=== PATIENT | female | born 1980 | race Caucasian/White ===

== ENCOUNTER 2017-09-23 09:52 | Emergency (ER) | payer SELFPAY ==
[~2017-09-23] VITALS: Ht 160 cm; Wt 99.0 kg
[2017-09-23 09:53] VITALS: BP 141/95; PULSE 75; RESP 16; TEMP 97.7; O2SAT 100
[2017-09-23] MEDS ORDERED: ZOLO100T PO (10:45)
--- NOTE | 2017-09-23 10:46 | PD ---
HPI Chief Complaint: Medication Refill Request Time Seen by Provider: 10:22 Travel History International Travel<30 days: No Contact w/Intl Traveler<30days: No Traveled to known affect area: No History of Present Illness HPI This is a 37-year-old female here with major depressive disorder who recently relocated to the [facility] [place]. She is requesting a refill of her Zoloft. She reports she has been on Zoloft 100 mg daily for major depressive disorder for the last 4 years. She attempted to go to [facility] to establish with a new psychiatrist but was told she could not be scheduled an appointment until October 05. She reports her last dose of Zoloft was 2 days ago. She denies homicidal or suicidal ideation. She has no medical complaint. [facility] Past Medical History Narrative Medical Major depressive disorder Social History Tobacco Use: No Allergies-Medications (Allergen,Severity, Reaction): Coded Allergies: penicillin G (Verified Allergy, Severe, 09/23/17) cephalexin (Verified Allergy, Unknown, 09/23/17) Review of Systems Except as stated in HPI: all other systems reviewed are Neg Physical Exam Narrative GENERAL: Alert and well-appearing 37-year-old female SKIN: Warm and dry. HEAD: Normocephalic. EYES: No injection or drainage. NECK: Supple CARDIOVASCULAR: Regular rate and rhythm RESPIRATORY: Breath sounds equal bilaterally. No accessory muscle use. PSYCHIATRIC: Normal affect. No delusional thought processes. No hallucinations. Data Data Last Documented VS Vital Signs Date Time Temp Pulse Resp B/P (MAP) Pulse Ox O2 Delivery O2 Flow Rate FiO2 09/23/17 09:53 97.7 75 16 141/95 (110) 100 Room Air MDM Medical Decision Making Medical Screen Exam Complete: Yes Emergency Medical Condition: Yes Differential Diagnosis History of major depressive disorder, medication refill, other Narrative Course This is a 37-year-old female here with history of major depressive disorder who relocated to the [facility] and is looking for any psychiatrist. She is requesting a refill of her Zoloft. She reports she has been stable on Zoloft 100 mg daily for the last 4 years. She has a prescription bottle to verify dosing. No homicidal or suicidal ideation. Patient has a scheduled appointment on October 05 to establish with a new psychiatrist. Patient will be given a one-month supply of her Zoloft and instructed to follow-up with psychiatry. She agrees to this plan Diagnosis Primary Impression: Medication refill Referrals: [facility] (Out patient) Additional Instructions: Keep your scheduled appointment with Sander summers on October 05. Take the Zoloft as directed. Return to the emergency department if you develop new or worsening symptoms Scripts Sertraline (Zoloft) 100 Mg Tab 100 MG PO DAILY, #30 TAB 0 Refills Prov: Obdulia Mina 09/23/17 Disposition: 01 DISCHARGE HOME Condition: Stable Obdulia Mina Sep 23, 2017 10:46
== END 2017-09-23 10:55 | disposition home or self-care (01) ==
LOC: NEPK 09:52
DX: F32.9 Major depressive disorder, single episode, unspecified (principal); Z76.0 Encounter for issue of repeat prescription
CPT/HCPCS: 99283

== ENCOUNTER 2017-12-07 17:55 | Emergency (ER) | payer MEDICAID ==
[~2017-12-07 17:55] MED LIST: ZOLO100T PO
[2017-12-07 18:17] VITALS: BP 173/117; PULSE 91; RESP 18; TEMP 99.1; O2SAT 98
[2017-12-07 19:01] LABS: AUTOMATED NEUTROPHIL # 4.8 TH/MM3 (1.8-7.7); BASOPHIL # 0.1 TH/MM3 (0-0.2); BASOPHIL % 1.2 % (0.0-2.0); EOSINOPHIL # 0.2 TH/MM3 (0-0.4); EOSINOPHIL % 2.2 % (0.0-4.0); HEMATOCRIT 42.5 % (35.0-46.0); HEMOGLOBIN 14.4 GM/DL (11.6-15.3); LYMPH % 31.4 % (9.0-44.0); LYMPHOCYTE # 2.6 TH/MM3 (1.0-4.8); MEAN CELL VOLUME 84.7 FL (80.0-100.0); MEAN CORPUSCULAR HEMOGLOBIN 28.7 PG (27.0-34.0); MEAN CORPUSCULAR HGB CONC 33.8 % (32.0-36.0); MEAN PLATELET VOLUME 8.5 FL (7.0-11.0); MONO % 7.1 % (0.0-8.0); MONOCYTE # 0.6 TH/MM3 (0-0.9); NEUT % 58.1 % (16.0-70.0); PLATELET COUNT 262 TH/MM3 (150-450); RED BLOOD COUNT 5.02 MIL/MM3 (4.00-5.30); RED CELL DISTRIBUTION WIDTH 15.5 % (11.6-17.2); WHITE BLOOD COUNT 8.2 TH/MM3 (4.0-11.0)
[2017-12-07 19:13] LABS: BILIRUBIN, URINE NEG (NEG); BLOOD, URINE NEG (NEG); GLUCOSE,URINE NEG (NEG); KETONE, URINE NEG (NEG); NITRITE,URINE NEG (NEG); PH, URINE 5.5 (5.0-8.5); SQUAMOUS EPITHELIAL CELL URINE <1 /hpf (0-5); URINE COLOR YELLOW (YELLW/STRAW); URINE LEUKOCYTE ESTERASE NEG (NEG)
[2017-12-07 19:27] LABS: ALBUMIN 3.9 GM/DL (3.4-5.0); AST (GOT) 18 U/L (15-37); BICARBONATE 28.1 MEQ/L (21.0-32.0); BLOOD UREA NITROGEN 8 MG/DL (7-18); CALCIUM 10.1 MG/DL (8.5-10.1); CHLORIDE 103 MEQ/L (98-107); GLOMERULAR FILTRATION RATE 81 ML/MIN (>89); GLUCOSE,RANDOM 101 MG/DL (74-106); SODIUM (NA) 138 MEQ/L (136-145)
[2017-12-07 19:28] LABS: ALT (GPT) 40 U/L (10-53)
[2017-12-07 19:30] LABS: ALKALINE PHOSPHATASE 65 U/L (45-117); TOTAL BILIRUBIN ADULT 0.3 MG/DL (0.2-1.0); TOTAL PROTEIN 8.5 GM/DL (6.4-8.2)
[2017-12-07 19:40] VITALS: O2SAT 99
[2017-12-07] MEDS ORDERED: MORPHINE SULFATE 4 MG/ML INJ IV PUSH ONE (19:45)
[2017-12-07] MEDS ORDERED: SODIUM CHLOR 0.9% 1000 ML INJ 1,000 ML IV ONE (19:45)
[2017-12-07] MEDS ORDERED: ONDANSETRON HCL 4 MG/2 ML VIAL IV PUSH ONE (19:45)
[2017-12-07] MEDS ORDERED: IOHEXOL 350 MG/ML 10 ML VIAL (for RAD DIAG) IVCONTRAST ONE (20:19)
--- NOTE | 2017-12-07 20:46 | RADRPT ---
EXAM DATE/TIME: 12/07/2017 20:15 [facility] COMPARISON: No previous studies available for comparison. INDICATIONS : Right lateral abdomen pain. IV CONTRAST: 97 cc Omnipaque 350 (iohexol) IV ORAL CONTRAST: No oral contrast ingested. RADIATION DOSE: 10.23 CTDIvol (mGy) MEDICAL HISTORY : None. SURGICAL HISTORY : None. ENCOUNTER: Initial ACUITY: 1 day PAIN SCALE: 5/10 LOCATION: Right lateral abdomen TECHNIQUE: Volumetric scanning of the abdomen and pelvis was performed. Using automated exposure control and ad justment of the mA and/or kV according to patient size, radiation dose was kept as low as reasonably achievable to obtain optimal diagnostic quality images. DICOM format image data is available electro nically for review and comparison. FINDINGS: LOWER LUNGS: The visualized lower lungs are clear. LIVER: There is diffuse decreased attenuation to the liver. There is a focal 1.3 cm hypodense mass seen at t he posterior right lateral aspect of posterior segment right lobe of the liver. The gallbladder is un remarkable. SPLEEN: Normal size without lesion. PANCREAS: Within normal limits. KIDNEYS: Normal in size and shape. There is no mass, stone or hydronephrosis. ADRENAL GLANDS: Within normal limits. VASCULAR: There is no aortic aneurysm. BOWEL/MESENTERY: What appears to be appendix is seen in the right lower quadrant extending laterally from the cecum. I t does appear thickened measuring 1.3 cm. This only measures 3 cm in length. The stomach, small bowel , and colon demonstrate no acute abnormality. There is no free intraperitoneal air or fluid. ABDOMINAL WALL: Within normal limits. RETROPERITONEUM: There is no lymphadenopathy. BLADDER: No wall thickening or mass. REPRODUCTIVE: There is a 5.1 cm cyst at the left adnexa. INGUINAL: There is no lymphadenopathy or hernia. MUSCULOSKELETAL: Within normal limits for patient age. CONCLUSION: 1. What appears to be appendix appears thickened. Appendicitis could be considered in the correct cli nical situation. 2. 5.1 cm cyst at the left ovary. 3. Hepatic steatosis. Eric Burden MD on December 07, 2017 at 20:37 Board Certified Radiologist. This report was verified electronically.
--- NOTE | 2017-12-07 20:57 | PD ---
HPI . Abdominal pain Chief Complaint: Abdominal Pain Time Seen by Provider: 19:28 Travel History International Travel<30 days: No Contact w/Intl Traveler<30days: No Traveled to known affect area: No History of Present Illness HPI Patient presents with a chief complaint of diffuse upper abdominal pain. Onset was 1 week. The pain waxes and wanes and has been worse today than usual. It is currently rated 8/10. She states that it feels like a heavy sensation which has been located in her upper abdomen the entire week. Pain is not exacerbated by walking. Pain is exacerbated by eating solid foods and laying flat. Associated symptoms include nausea and loose stools. She reports a decreased appetite. She states that it is hard to breathe and that it hurts worse when she breathes. She reports a strong family history of cholelithiasis at a young age. PFSH Past Medical History Anxiety: Yes Depression: Yes GERD: Yes Hypertension: Yes ?: Not Dilation and Curettage (D&C): Yes Past Surgical History Section: Yes (x3 ) Social History Alcohol Use: No Tobacco Use: No Substance Use: No Allergies-Medications (Allergen,Severity, Reaction): Coded Allergies: penicillin G (Verified Allergy, Severe, 12/07/17) cephalexin (Verified Allergy, Unknown, 12/07/17) Reported Meds & Prescriptions Reported Meds & Active Scripts Active Bentyl (Dicyclomine HCl) 10 Mg Cap 20 Mg PO QID Zoloft (Sertraline HCl) 100 Mg Tab 100 Mg PO DAILY Review of Systems Except as stated in HPI: all other systems reviewed are Neg General / Constitutional: No: Fever, Chills Gastrointestinal: Positive: Nausea, Diarrhea, Abdominal Pain, No: Vomiting Genitourinary: No: Urgency, Frequency, Dysuria, Dyspareunia, Discharge, Vaginal Bleeding Physical Exam Narrative GENERAL: Awake and alert. She does not appear to be in acute distress although she does look a little bit uncomfortable. SKIN: warm/dry. HEAD: Normocephalic. Atraumatic. EYES: Pupils equal and round. No scleral icterus. No injection or drainage. ENT: No nasal bleeding or discharge. Mucous membranes pink and moist. NECK: Trachea midline. Full range of motion without pain.. CARDIOVASCULAR: Regular rate and rhythm. Heart sounds are normal. RESPIRATORY: No accessory muscle use. Clear to auscultation. Breath sounds equal bilaterally. GASTROINTESTINAL: Abdomen soft. Mainly upper abdominal tenderness. She does have some lower abdominal tenderness about the upper abdominal tenderness is worse than the lower abdominal tenderness. Bowel sounds present. Nondistended. MUSCULOSKELETAL: No obvious deformities. NEUROLOGICAL: Awake and alert. No obvious cranial nerve deficits. Motor grossly within normal limits. Normal speech. PSYCHIATRIC: Appropriate mood and affect; insight and judgment normal. Data Data Last Documented VS Vital Signs Date Time Temp Pulse Resp B/P (MAP) Pulse Ox O2 Delivery O2 Flow Rate FiO2 12/07/17 19:40 99 Room Air 12/07/17 18:17 99.1 91 18 173/117 (135) Orders Orders Complete Blood Count With Diff (12/07/17 18:24) Comprehensive Metabolic Panel (12/07/17 18:24) Urinalysis - C+S If Indicated (12/07/17 18:24) Ed Urine Pregnancytest Poc (12/07/17 18:24) Iv Access Insert/Monitor (12/07/17 18:24) Oxygen Administration (12/07/17 18:24) Oximetry (12/07/17 18:24) Lipase (12/07/17 18:24) Morphine Inj (Morphine Inj) (12/07/17 19:45) Ondansetron Inj (Zofran Inj) (12/07/17 19:45) Sodium Chlor 0.9% 1000 Ml Inj (Ns 1000 M (12/07/17 19:45) Ct Abd/Pel W Iv Contrast(Rout) (12/07/17 19:36) Iohexol 350 Inj (Omnipaque 350 Inj) (12/07/17 20:19) Labs Laboratory Tests Test 12/07/17 18:37 White Blood Count 8.2 TH/MM3 Red Blood Count 5.02 MIL/MM3 Hemoglobin 14.4 GM/DL Hematocrit 42.5 % Mean Corpuscular Volume 84.7 FL Mean Corpuscular Hemoglobin 28.7 PG Mean Corpuscular Hemoglobin Concent 33.8 % Red Cell Distribution Width 15.5 % Platelet Count 262 TH/MM3 Mean Platelet Volume 8.5 FL Neutrophils (%) (Auto) 58.1 % Lymphocytes (%) (Auto) 31.4 % Monocytes (%) (Auto) 7.1 % Eosinophils (%) (Auto) 2.2 % Basophils (%) (Auto) 1.2 % Neutrophils # (Auto) 4.8 TH/MM3 Lymphocytes # (Auto) 2.6 TH/MM3 Monocytes # (Auto) 0.6 TH/MM3 Eosinophils # (Auto) 0.2 TH/MM3 Basophils # (Auto) 0.1 TH/MM3 CBC Comment DIFF FINAL Differential Comment Urine Color YELLOW Urine Turbidity CLEAR Urine pH 5.5 Urine Specific [place] 1.010 Urine Protein NEG mg/dL Urine Glucose (UA) NEG mg/dL Urine Ketones NEG mg/dL Urine Occult Blood NEG Urine Nitrite NEG Urine Bilirubin NEG Urine Urobilinogen LESS THAN 2.0 MG/DL Urine Leukocyte Esterase NEG Urine Squamous Epithelial Cells <1 /hpf Microscopic Urinalysis Comment CULT NOT INDICATED Blood Urea Nitrogen 8 MG/DL Creatinine 0.80 MG/DL Random Glucose 101 MG/DL Total Protein 8.5 GM/DL Albumin 3.9 GM/DL Calcium Level 10.1 MG/DL Alkaline Phosphatase 65 U/L Aspartate Amino Transf (AST/SGOT) 18 U/L Alanine Aminotransferase (ALT/SGPT) 40 U/L Total Bilirubin 0.3 MG/DL Sodium Level 138 MEQ/L Potassium Level 4.0 MEQ/L Chloride Level 103 MEQ/L Carbon Dioxide Level 28.1 MEQ/L Anion Gap 7 MEQ/L Estimat Glomerular Filtration Rate 81 ML/MIN Lipase 176 U/L MDM Medical Decision Making Medical Screen Exam Complete: Yes Emergency Medical Condition: Yes Differential Diagnosis Differential diagnosis of abdominal pain includes but is not limited to gastritis, pancreatitis, hepatitis, gastroenteritis, constipation, urinary retention, peptic ulcer disease, diverticulitis or appendicitis Narrative Course This patient presents for the evaluation of upper abdominal pain for the last week. She has upper abdominal tenderness on exam. She has lesser lower abdominal tenderness. test is negative. CBC & BMP Diagram 12/07/17 18:37 Total Protein 8.5 H, Albumin 3.9, Calcium Level 10.1, Alkaline Phosphatase 65, Aspartate Amino Transf (AST/SGOT) 18, Alanine Aminotransferase (ALT/SGPT) 40, Total Bilirubin 0.[address]: 1. What appears to be appendix appears thickened. Appendicitis could be considered in the correct clinical situation. 2. 5.1 cm cyst at the left ovary. 3. Hepatic steatosis. I have reexamined her abdomen. She continues to have upper greater than lower abdominal tenderness on exam. I will consult Dr. Huizar and asked him to have a look at the CAT scan and weigh in on her disposition. Physician Communication Physician Communication Discussed with Dr. Huizar. Based upon her abdominal exam, normal white blood count and no inflammatory changes reported on the CT, she can be discharged home with outpatient follow-up. He will see her in the office next week. She is to return to the emergency department if she has escalation of her symptoms. Diagnosis Primary Impression: Abdominal pain Qualified Codes: R10.10 - Upper abdominal pain, unspecified Referrals: Morris Huizar MD Patient Instructions: Abdominal Pain (ED), General Instructions Med/Other Pt SpecificInfo: Prescription(s) given Scripts Dicyclomine (Bentyl) 10 Mg Cap 20 MG PO QID for Bowel Management, #20 CAP 0 Refills Prov: Martha Odell MD 12/07/17 Disposition: 01 DISCHARGE HOME Condition: Stable Martha Odell MD Dec 07, 2017 20:57
[2017-12-07] MEDS ORDERED: DICY10 PO (21:03)
[2017-12-07] MEDS ORDERED: PROCHLORPERAZINE INJ 10 MG/2 ML VIAL IV PUSH ONE (22:15)
[2017-12-07] MEDS ORDERED: diphenhydrAMINE HCL 50 MG/ML VIAL IV PUSH ONE (22:15)
== END 2017-12-07 22:30 | disposition home or self-care (01) ==
LOC: NEPE 17:55
DX: R10.10 Upper abdominal pain, unspecified (principal); N83.202 Unspecified ovarian cyst, left side; K76.0 Fatty (change of) liver, not elsewhere classified; I10 Essential (primary) hypertension; K21.9 Gastro-esophageal reflux disease without esophagitis; F32.9 Major depressive disorder, single episode, unspecified; F41.9 Anxiety disorder, unspecified; Z88.0 Allergy status to penicillin
CPT/HCPCS: 74177; 80053; 81001; 83690; 84703; 85025; 96361; 96374; 96375; 99285; J0780; J1200; J2405; J7030; Q9967